=== PATIENT | female | born 1935 | race Caucasian/White ===

== ENCOUNTER 2022-01-21 20:34 | Inpatient (IN) | payer OTHER ==
[~2022-01-21] VITALS: Ht 152.4 cm; Wt 63.5 kg
--- NOTE | 2022-01-21 20:56 | NUR ---
SE RECIBE PTE LETARGICA Y ACOMPANADA POR SMITH HIJO QUIEN REFIERE FEMINA SE WILY HACE 3 SEMANAS GOLPEANDOSE LA ESPALDA Y LA MAX. HIJO REFIERE QUE NO ESTA RESPONDIENDO CORRECTAMENTE A COMANDO VERBALES Y PRESENTA DEBILIDAD EN LADO SUPERIOR IZQ DEL CUERPO. SE ALEJANDRA S/V Y SE UBICA.
--- NOTE | 2022-01-21 21:27 | NUR ---
SE EDUCA A PTE SOBRE TX MEDICO ESTA REFIERE ENTENDER. SE ALEJANDRA MUESTRAS DE LABORATORIO UTILIZANDO MEDIDAS ASEPTICAS. SE COLOCA H/L Y IV FLUIDS.
--- NOTE | 2022-01-22 03:07 | NUR ---
SE RECIBE PTE ALERTA NO ORIENTADA RESPONDE A ESTIMULO DE DOLOR EN CAMA CON BARANDAS ELEVADAS POR SMITH SEGURIDAD,CAMA A 45 GRADOS.VENO PUNCION PATENTE ALEM DE EDEMA Y ERITEMA AMBAS ELISEO #20 Y #20 ANTE BRAZO MICHELE RECIBIENDO 0.9NSS BAJANDO A 100ML/HR,DRIP DE TRIDIL 50MG/250ML BAJANDO A 1ML/HR.CANULA NASAL 3LPM SAT-100%.AL MOMENTO SE OBSERVA PTE AGITADA SE RESTRINGUE LAUREL ORDEN MEDICA DE POR PREVENCION EN MANO DERECHA E IZQUIERDA.SE OBSERVA ABDOMEN DEPRESIBLE CON PERISTALSIS PRESENTE AL MOMENTO.ABRACION EN EL AREA DE LA AREA DE LA PELVIS EN EL LADO MICHELE.NO SE OBSERVA EDEMA EN EXTREMIDADES SUPERIORES E INFERIORES, SE ALEJANDRA MUESTRA DE LABORATORIO USANDO MEDIDAS ASEPTICAS, SE REALIZA EKG.SE COLOCA SONDA URINARIA USANDO MEDIDAS ASEPTICAS.
--- NOTE | 2022-01-22 05:55 | NUR ---
FAMILIAR DE PACIENTE FIRMA DIRECTRICES ANTICIPADAS DRN + DNI.SE ALEJANDRA MUESTRAS DE LABORATORIO USANDO MEDIDAS ASEPTICAS, SE REALIZA INGRESO Y EGRESO. SE REALIZA CAMBIO DE POSICION. SE ENTREGA PACIENTE AL PROXIMO TURNO PARA CONTINUIDAD DE TX.
--- NOTE | 2022-01-22 07:02 | NUR ---
SE RECIBE PTE FEMENINA DE 86 ANOS ALERTA Y DESORIENTADA X3. PTE SE OBSERBA CONECTADO A MONITOR CARDIACO YESSICA. PTE SE OBSERBA CON RESTRICCIONES X2 EXTREMIDADES SUPERIORES. PTE SE OBSERBA CANALIZADA EN BRAZO MICHELE CON ANGIO #20. PTE AL MOMENTO SE OBSERBA RECIBIENDO INFUCION DE 0.9% NSS BAJANDO A 100 ML/HR. PTE SE OBSERBA CON CARDENAS A GRAVEDAD. PTE SE MANTIENE EN CAMA DESCANSO ABSOLUTO U BAJO OBSERBACION POR CAMBIO SIGNIFICATIVO EN SMITH CONDICION.
[2022-01-23] MEDS ORDERED: MEMANTINE HCL ER7 MG (08:32)
[2022-01-23] MEDS ORDERED: HYDROXYCHLOROQ200 MG (08:32)
[2022-01-23] MEDS ORDERED: SPIRONOLACTONE25 MG (08:32)
[2022-01-23] MEDS ORDERED: ALLERGY RELIEF180 MG (08:32)
[2022-01-23] MEDS ORDERED: QVAR REDIHALE10.6 G1 (08:32)
[2022-01-23] MEDS ORDERED: GABAPENTIN400 MG (08:32)
[2022-01-23] MEDS ORDERED: SIMVASTATIN20 MG (08:32)
[2022-01-23] MEDS ORDERED: FUROSEMIDE20 MG (08:32)
[2022-01-23] MEDS ORDERED: MELOXICAM15 MG (08:32)
[2022-01-23] MEDS ORDERED: RAYOS5 MG (08:36)
[2022-01-23] MEDS ORDERED: LEVOTHYROXINE25 MC1 (08:36)
[2022-01-23] MEDS ORDERED: REMINYL4 MG (08:36)
[2022-01-23] MEDS ORDERED: AMLODIPINE-BEN1 EAC1 (08:36)
[2022-01-23] MEDS ORDERED: ATENOLOL25 MG (08:36)
[2022-01-23] MEDS ORDERED: HYDROCHLOROTH12.5 MG (08:36)
[2022-02-15] MEDS ORDERED: SIMVASTATIN20 MG PO (10:28)
[2022-02-15] MEDS ORDERED: TUSSIN MUC100 MG/5 M PO (10:28)
[2022-02-15] MEDS ORDERED: HYDROCODONE-CH115 ML PO (10:28)
[2022-02-15] MEDS ORDERED: AMLODIPINE BESYL5 MG PO (10:28)
[2022-02-15] MEDS ORDERED: LUBRIDERM ADVA177 ML TOP (10:28)
[2022-02-15] MEDS ORDERED: MULTIVITAMIN-M1 EACH PO (10:28)
[2022-02-15] MEDS ORDERED: LOSARTAN POTASS25 MG PO (10:28)
[2022-02-15] MEDS ORDERED: HYDROXYCHLOROQ200 MG PO (10:28)
[2022-02-15] MEDS ORDERED: KEPPRA100 MG/1 M PO (10:28)
[2022-02-15] MEDS ORDERED: BENZONATATE200 M1 PO (10:28)
[2022-02-15] MEDS ORDERED: ATENOLOL25 MG PO (10:28)
[2022-02-15] MEDS ORDERED: FUROSEMIDE20 MG PO (10:28)
[2022-02-15] MEDS ORDERED: NAMENDA10 MG PO (10:28)
[2022-02-15] MEDS ORDERED: LEVOTHYROXINE25 MCG PO (10:28)
[2022-02-15] MEDS ORDERED: PROTEINEX-18 LI30 ML PO (10:28)
== END 2022-02-15 17:46 | DRG 100 ==
LOC: ER 20:34 → ICU-2 01-22 15:00 → ICU 01-22 15:00 → MEDI 02-01 19:26 → MEDJ 02-03 17:00
PROVIDERS: ADMIT Internal Medicine; ATTEND Internal Medicine
PROC: 02HV33Z Insertion of Infusion Device into Superior Vena Cava, Percutaneous Approach (ICD-10-PCS; 2022-01-23)
PROC: 30243N1 Transfusion of Nonautologous Red Blood Cells into Central Vein, Percutaneous Approach (ICD-10-PCS; 2022-01-29)
PROC: 4A12X4Z Monitoring of Cardiac Electrical Activity, External Approach (ICD-10-PCS; 2022-02-01)
PROC: 8E0ZXY6 Isolation (ICD-10-PCS; 2022-02-05)
PROC: 0W9930Z Drainage of Right Pleural Cavity with Drainage Device, Percutaneous Approach (ICD-10-PCS; principal; 2022-02-07)
DX: R56.9 Unspecified convulsions (principal); J15.9 Unspecified bacterial pneumonia; N39.0 Urinary tract infection, site not specified; J91.8 Pleural effusion in other conditions classified elsewhere; J98.11 Atelectasis; B95.62 Methicillin resistant Staphylococcus aureus infection as the cause of diseases classified elsewhere; G30.9 Alzheimer's disease, unspecified; E86.0 Dehydration; G31.9 Degenerative disease of nervous system, unspecified; R53.81 Other malaise; M32.9 Systemic lupus erythematosus, unspecified; S09.90XA Unspecified injury of head, initial encounter; F02.80 Dementia in other diseases classified elsewhere, unspecified severity, without behavioral disturbance, psychotic disturbance, mood disturbance, and anxiety; I35.0 Nonrheumatic aortic (valve) stenosis; I11.9 Hypertensive heart disease without heart failure; E03.8 Other specified hypothyroidism; Z66 Do not resuscitate; E83.42 Hypomagnesemia; Z91.81 History of falling; R13.19 Other dysphagia; Z78.1 Physical restraint status
CPT/HCPCS: 70552; 70553